=== PATIENT | female | born 1985 | race Caucasian/White ===

== ENCOUNTER 2016-05-16 09:03 | Emergency (ER) | payer MEDICAID, OTHER ==
[2016-05-16 09:12] VITALS: TEMP 97.5
[2016-05-16] MEDS ORDERED: NS 1,000 ML IV ONE (09:18)
[2016-05-16] MEDS ORDERED: ONDANSETRON 4 MG/2 ML VIAL IVP ONE ×2 (09:19→10:39)
--- NOTE | 2016-05-16 10:03 | EDPHY ---
H & P Time Seen by Provider: 05/16/16 09:24 HPI/ROS: CHIEF COMPLAINT: Vomiting HISTORY OF PRESENT ILLNESS: 31-year-old female presents with vomiting. Onset of vomiting last night at midnight, unable to tolerate oral fluids since then. No associated abdominal pain, fever or diarrhea. Her mother was ill with gastroenteritis last week. REVIEW OF SYSTEMS: Constitutional: No fever, no chills Eyes: No visual changes ENT: No sore throat Respiratory: No cough, no shortness of breath Cardiac: No chest pain Genitourinary: No hematuria, no dysuria Musculoskeletal: No leg pain or swelling Skin: No rash Neurological: No headache, no numbness, no weakness Psychiatric: No depression Past Medical/Surgical History: Denies Smoking Status: Never smoked Physical Exam: General Appearance: Alert, nontoxic appearing Eyes: Pupils equal and round, no conjunctival pallor or injection ENT, Mouth: Mucous membranes moist Neck: Normal inspection Respiratory: Lungs are clear to auscultation Cardiovascular: Regular rate and rhythm Gastrointestinal: Abdomen is soft and nontender Neurological: A&O, nonfocal, normal gait Skin: Warm and dry, no rash Extremities: normal inspection Psychiatric: Mood and affect normal Constitutional: Initial Vital Signs Temperature (C) 36.4 C 05/16/16 09:03 Heart Rate 112 H 05/16/16 09:03 Respiratory Rate 18 05/16/16 09:03 Blood Pressure 102/72 05/16/16 09:03 O2 Sat (%) 95 05/16/16 09:03 O2 Delivery Mode Room Air Allergies/Adverse Reactions: Penicillins Allergy (Intermediate, Verified 05/16/16 09:09) Hives Home Medications: Medication Instructions Recorded Ondansetron Odt [Zofran Odt 4 mg 4 mg PO Q4 PRN #6 tab 05/16/16 (*)] Medical Decision Making ED Course/Re-evaluation: IV normal saline 1 L and Zofran 4 mg IV x2 given. The patient feels much better after this treatment. Tolerated oral fluids well. Abdomen remained soft and nontender. Differential Diagnosis: Differential diagnosis includes though it is not limited to appendicitis, cholecystitis, diverticulitis, pyelonephritis, bowel perforation, small bowel obstruction. - Data Points Medications Given: Discontinued Medications Sodium Chloride (Ns) 1,000 mls @ 0 mls/hr IV ONCE ONE PRN Reason: Wide Open Stop: 05/16/16 09:19 Last Admin: 05/16/16 09:33 Dose: 1,000 mls Ondansetron HCl (Zofran) 4 mg IVP EDNOW ONE Stop: 05/16/16 09:20 Last Admin: 05/16/16 09:33 Dose: 4 mg Ondansetron HCl (Zofran) 4 mg IVP EDNOW ONE Stop: 05/16/16 10:40 Last Admin: 05/16/16 10:39 Dose: 4 mg Departure - Departure Disposition: Home, Routine, Self-Care Clinical Impression: Acute vomiting Condition: Good Instructions: Acute Nausea and Vomiting (ED) Additional Instructions: Clear liquids for 24 hours. Referrals: Angelica Resendiz MD [Medical Doctor] - As per Instructions Prescriptions: Ondansetron Odt [Zofran Odt 4 mg (*)] 4 mg PO Q4 PRN #6 tab PRN Reason: Nausea
[2016-05-16] MEDS ORDERED: ONDANSETRON 4 MG/2 ML VIAL ONE (10:36)
[2016-05-16 10:52] VITALS: BP 99/59; PULSE 98; RESP 16; O2SAT 96
== END 2016-05-16 10:57 | disposition home or self-care (01) ==
DX: R11.10 Vomiting, unspecified (principal)
CPT/HCPCS: 96374; J2405